=== PATIENT | male | born 1985 | race Hispanic/Latino ===

== ENCOUNTER 2017-04-15 17:48 | Emergency (ER) | payer OTHER ==
[2017-04-15 17:48] VITALS: BMI 19.2
[2017-04-15 17:59] VITALS: BP 130/60; PULSE 90; RESP 16; TEMP 98.5; O2SAT 97
[2017-04-15] MEDS ORDERED: TDAP Vaccine 0.5 mL Syr IM ONE (18:16)
--- NOTE | 2017-04-15 18:37 | ED PDOC ---
Upper Extremity Pain/Injury Time Seen by Provider: 04/15/17 18:10 Chief Complaint (Nursing): Finger,Hand,&Wrist Chief Complaint (Provider): left hand finger pain History Per: Patient History/Exam Limitations: no limitations Current Symptoms Are (Timing): Still Present Additional Complaint(s): Srinivasa Castro is a 31 year old male, with no previous medical history, who presented to the ED with complaints of pain to the middle finger of his left hand secondary to sustaining an injury with a nail gun earlier today. Patient reports the nail ricochet off the wall and grazed the surface of his nail on the middle finger. Patient denies any limited range of motion and is unsure of last tetanus vaccine. Patient states he is right hand dominant. PMD: none provided Past Medical History Reviewed: Historical Data, Nursing Documentation, Vital Signs Vital Signs: Last Vital Signs Temp 98.5 F 04/15/17 17:56 Pulse 90 04/15/17 17:56 Resp 16 04/15/17 17:56 BP 130/60 04/15/17 17:56 Pulse Ox 97 04/15/17 17:56 - Medical History PMH: No Chronic Diseases - Surgical History Surgical History: No Surg Hx - Family History Family History: States: Unknown Family Hx - Home Medications Home Medications: Ambulatory Orders Medication Instructions Recorded Lidocaine 2% Viscous 10 ml MM Q4H PRN #1 bottle 06/06/16 Naproxen [Naprosyn] 500 mg PO BID PRN #20 tablet 06/06/16 Cephalexin [Keflex] 1 tab PO QID #20 capsule 04/15/17 Ibuprofen [Motrin] 600 mg PO Q8 PRN #21 tab 04/15/17 - Allergies Allergies/Adverse Reactions: Allergies Allergy/AdvReac Type Severity Reaction Status Date / Time FISH Allergy ANAPHYLAXIS Verified 04/15/17 17:56 morphine Allergy RASH Verified 04/15/17 17:56 shellfish derived Allergy ANAPHYLAXIS Verified 04/15/17 17:56 strawberry Allergy RASH Verified 04/15/17 17:56 Review of Systems ROS Statement: Except As Marked, All Systems Reviewed And Found Negative Musculoskeletal: Positive for: Hand Pain (left hand 3rd digit ) Physical Exam - Reviewed Nursing Documentation Reviewed: Yes Vital Signs Reviewed: Yes - Physical Exam Appears: Positive for: Well, Non-toxic, No Acute Distress Extremity: Positive for: Normal ROM (able to flex and extend at the MCP, DIP and PIP of 3rd digit left hand ), Capillary Refill (< 2 seconds ), Other (8 mm linear horizontal abrasion to the mid nail not involving nail bed. ). Negative for: Deformity, Swelling Neurologic/Psych: Positive for: Alert, Oriented - ECG O2 Sat by Pulse Oximetry: 97 (RA) Pulse Ox Interpretation: Normal - Progress ED Course And Treament: XRY OF HAND: NO FX NOTED. PLACED IN FINGER SPLINT D/W PATIENT HAND F/U Medical Decision Making Medical Decision Making: Initial Impression: 3rd left digit pain Initial Plan: * boostrix vaccine * x-ray left hand * reevaluation Scribe Attestation: Documented by Bette Aparicio, acting as a scribe for Aislinn Conley PA-C. Provider Scribe Attestation: All medical record entries made by the Scribe were at my direction and personally dictated by me. I have reviewed the chart and agree that the record accurately reflects my personal performance of the history, physical exam, medical decision making, and the department course for this patient. I have also personally directed, reviewed, and agree with the discharge instructions and disposition. Disposition - Clinical Impression Clinical Impression: Finger injury - Patient ED Disposition Is Patient to be Admitted: No - Disposition Referrals: Charanjit Sanders MD [Staff Provider] - Disposition: Routine/Home Disposition Time: 18:53 Condition: FAIR Prescriptions: Cephalexin [Keflex] 1 tab PO QID #20 capsule Ibuprofen [Motrin] 600 mg PO Q8 PRN #21 tab PRN Reason: Pain, Moderate (4-7) Instructions: Finger Sprain (ED), Abrasion (ED) Forms: [facility] ED School/Work Excuse
--- NOTE | 2017-04-15 18:55 | RAD ---
PROCEDURE: Left middle finger radiographs. HISTORY: FINGER INJURY COMPARISON: None available. TECHNIQUE: AP radiograph of the left hand, as well as spot oblique and lateral images of left middle finger were obtained. FINDINGS: LEFT MIDDLE FINGER: Left 3rd digit appears unremarkable without acute displaced fracture. Remainder of the left hand (as seen on the AP view) is grossly unremarkable. JOINTS: No dislocation. SOFT TISSUES: Mild soft tissue swelling. No evidence of radiopaque foreign body. OTHER FINDINGS: None. IMPRESSION: Mild soft tissue swelling. No acute displaced fracture identified. No evidence of radiopaque foreign body.
== END 2017-04-15 19:42 | disposition home or self-care (01) ==
LOC: H.ER 17:48
DX: S63.613A Unspecified sprain of left middle finger, initial encounter (principal); W22.8XXA Striking against or struck by other objects, initial encounter; Y92.89 Other specified places as the place of occurrence of the external cause

== ENCOUNTER 2017-09-18 06:39 | Emergency (ER) | payer OTHER ==
[2017-09-18 06:39] VITALS: BMI 19.2
[2017-09-18 06:53] VITALS: BP 135/90; PULSE 62; RESP 18; TEMP 97.6; O2SAT 98
--- NOTE | 2017-09-18 07:22 | ED PDOC ---
HPI: CCC, URI, Sore Throat Time Seen by Provider: 09/18/17 07:04 Chief Complaint (Nursing): ENT Problem History Per: Patient History/Exam Limitations: no limitations Onset/Duration Of Symptoms: Days (4), Gradual Current Symptoms Are (Timing): Still Present Location Of Pain: Ear(s) Sick Contacts (Context): None Associated Symptoms: Sore Throat, Cough. denies: Fever, Chills, Sputum, Neck Pain, Myalgias, Nasal Congestion, Nausea, Vomiting, Diarrhea Ear Symptoms: Bilateral: None Severity: Mild Additional History Per: Patient Additional Complaint(s): c/o throat pain, nasal congestion and cold sweats x 5 days. No travel or sick contacts Past Medical History Reviewed: Historical Data, Nursing Documentation, Vital Signs Vital Signs: Last Vital Signs Temp 97.6 F 09/18/17 07:15 Pulse 62 09/18/17 07:15 Resp 18 09/18/17 07:15 BP 135/90 09/18/17 07:15 Pulse Ox 98 09/18/17 07:15 - Medical History PMH: No Chronic Diseases - Family History Family History: States: Unknown Family Hx - Living Arrangements Living Arrangements: With Family - Social History Current smoker - smoking cessation education provided: No - Home Medications Home Medications: Ambulatory Orders Medication Instructions Recorded Lidocaine 2% Viscous 10 ml MM Q4H PRN #1 bottle 06/06/16 Naproxen [Naprosyn] 500 mg PO BID PRN #20 tablet 06/06/16 Cephalexin [Keflex] 1 tab PO QID #20 capsule 04/15/17 Ibuprofen [Motrin] 600 mg PO Q8 PRN #21 tab 04/15/17 Azithromycin [Zithromax] 250 mg PO DAILY #5 tab 09/18/17 - Allergies Allergies/Adverse Reactions: Allergies Allergy/AdvReac Type Severity Reaction Status Date / Time FISH Allergy ANAPHYLAXIS Verified 04/15/17 17:56 morphine Allergy RASH Verified 04/15/17 17:56 shellfish derived Allergy ANAPHYLAXIS Verified 04/15/17 17:56 strawberry Allergy RASH Verified 04/15/17 17:56 Review of Systems ROS Statement: Except As Marked, All Systems Reviewed And Found Negative Constitutional: Negative for: Fever, Chills ENT: Positive for: Throat Pain Cardiovascular: Negative for: Chest Pain, Palpitations Respiratory: Positive for: Cough, Sputum (yellow). Negative for: Shortness of Breath Gastrointestinal: Negative for: Nausea, Vomiting, Abdominal Pain Physical Exam - Reviewed Nursing Documentation Reviewed: Yes Vital Signs Reviewed: Yes - Physical Exam Appears: Positive for: Well, No Acute Distress Head Exam: Positive for: ATRAUMATIC, NORMAL INSPECTION, NORMOCEPHALIC Eye Exam: Positive for: Normal appearance, EOMI, PERRL ENT: Positive for: Pharynx Is (clear,mmm), Nasal Congestion. Negative for: Pharyngeal Erythema, Tonsillar Exudate, Tonsillar Swelling Neck: Positive for: Normal, Painless ROM, Supple. Negative for: Decreased ROM, Limited ROM Cardiovascular/Chest: Positive for: Regular Rate, Rhythm, Chest Non Tender. Negative for: Edema, Gallop, Murmur, Bradycardia, Tachycardia Respiratory: Positive for: Normal Breath Sounds. Negative for: Decreased Breath Sounds, Accessory Muscle Use, Crackles, Rales, Rhonchi, Stridor, Wheezing Gastrointestinal/Abdominal: Positive for: Normal Exam, Bowel Sounds, Soft. Negative for: Tenderness Back: Positive for: Normal Inspection. Negative for: L CVA Tenderness, R CVA Tenderness Extremity: Positive for: Normal ROM. 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 Negative for: Motor/Sensory Deficits - ECG O2 Sat by Pulse Oximetry: 98 Pulse Ox Interpretation: Normal Disposition - Clinical Impression Clinical Impression: Bronchitis - Patient ED Disposition Is Patient to be Admitted: No Counseled Patient/Family Regarding: Studies Performed, Diagnosis, Need For Followup, Rx Given - Disposition Referrals: [facility] [Outside] (2 to 3 days) Disposition: Routine/Home Disposition Time: 07:24 Condition: GOOD Prescriptions: Azithromycin [Zithromax] 250 mg PO DAILY #5 tab Instructions: Acute Bronchitis (ED)
== END 2017-09-18 07:47 | disposition home or self-care (01) ==
LOC: H.ER 06:39
DX: J40 Bronchitis, not specified as acute or chronic (principal)

== ENCOUNTER 2017-10-31 02:25 | Emergency (ER) | payer OTHER ==
[2017-10-31 02:26] VITALS: BMI 19.2
[2017-10-31 03:02] VITALS: BP 141/80; PULSE 56; RESP 18; TEMP 98; O2SAT 98
[2017-10-31] MEDS ORDERED: Oxycodone/Acetaminophen 5/325 mg Tab PO STA (03:38)
[2017-10-31] MEDS ORDERED: Oxycodone/Acetaminophen 5/325 mg Tab ONE (03:53)
--- NOTE | 2017-10-31 04:29 | ED PDOC ---
HPI: Dental Pain/Injury Time Seen by Provider: 10/31/17 02:52 Chief Complaint (Nursing): Dental Pain Chief Complaint (Provider): Dental pain, swelling History Per: Patient History/Exam Limitations: no limitations Onset/Duration Of Symptoms: Days Current Symptoms Are (Timing): Still Present Severity: Severe Pain Scale Rating Of: 10 Additional Complaint(s): Pt states he had dental implants 3 days ago and was given amoxicillin and tylenol #3. Pt reports worsening pain. Pt states he called dentist and they are fitting him in at 3:45 today. No fever chills Past Medical History Reviewed: Historical Data, Nursing Documentation, Vital Signs Vital Signs: Last Vital Signs Temp 98 F 10/31/17 02:55 Pulse 56 L 10/31/17 02:55 Resp 18 10/31/17 02:55 BP 141/80 10/31/17 02:55 Pulse Ox 98 10/31/17 02:55 - Medical History PMH: No Chronic Diseases - Surgical History Surgical History: No Surg Hx - Family History Family History: States: Unknown Family Hx - Living Arrangements Living Arrangements: With Family - Social History Current smoker - smoking cessation education provided: No - Home Medications Home Medications: Ambulatory Orders Medication Instructions Recorded Lidocaine 2% Viscous 10 ml MM Q4H PRN #1 bottle 06/06/16 Naproxen [Naprosyn] 500 mg PO BID PRN #20 tablet 06/06/16 Cephalexin [Keflex] 1 tab PO QID #20 capsule 04/15/17 Ibuprofen [Motrin] 600 mg PO Q8 PRN #21 tab 04/15/17 Azithromycin [Zithromax] 250 mg PO DAILY #5 tab 09/18/17 oxyCODONE/Acetaminophen [Percocet 1 ea PO Q6H PRN #5 tab 10/31/17 5/325 mg Tab] - Allergies Allergies/Adverse Reactions: Allergies Allergy/AdvReac Type Severity Reaction Status Date / Time FISH Allergy ANAPHYLAXIS Verified 04/15/17 17:56 morphine Allergy RASH Verified 04/15/17 17:56 shellfish derived Allergy ANAPHYLAXIS Verified 04/15/17 17:56 strawberry Allergy RASH Verified 04/15/17 17:56 Review of Systems ROS Statement: Except As Marked, All Systems Reviewed And Found Negative Constitutional: Negative for: Fever, Chills ENT: Positive for: Other Physical Exam - Reviewed Nursing Documentation Reviewed: Yes Vital Signs Reviewed: Yes - Physical Exam Appears: Positive for: Well, Non-toxic, No Acute Distress Head Exam: Positive for: ATRAUMATIC, NORMAL INSPECTION, NORMOCEPHALIC Skin: Positive for: Normal Color, Warm, DRY Eye Exam: Positive for: Normal appearance ENT: Negative for: Normal ENT Inspection (upper lip edema, edema of the gingiva - No abscess formation) Neck: Positive for: Normal, Painless ROM Cardiovascular/Chest: Positive for: Regular Rate, Rhythm Respiratory: Positive for: Normal Breath Sounds. Negative for: Accessory Muscle Use, Respiratory Distress Back: Positive for: Normal Inspection Extremity: Positive for: Normal ROM Neurologic/Psych: Positive for: Alert, Oriented - ECG O2 Sat by Pulse Oximetry: 98 Medical Decision Making Medical Decision Making: Pt reports feeling better after percocet and motrin. No itchiness, no SOB, etc. Disposition - Clinical Impression Clinical Impression: Pain, dental - Patient ED Disposition Is Patient to be Admitted: No - Disposition Referrals: Jairo Xie MD [Primary Care Provider] - Disposition: Routine/Home Disposition Time: 04:28 Condition: GOOD Additional Instructions: Follow-up with dental surgeon. Prescriptions: oxyCODONE/Acetaminophen [Percocet 5/325 mg Tab] 1 ea PO Q6H PRN #5 tab PRN Reason: Pain, Severe (8-10) Instructions: Toothache (ED)
== END 2017-10-31 04:55 | disposition home or self-care (01) ==
LOC: H.ER 02:25
DX: K08.89 Other specified disorders of teeth and supporting structures (principal)

== ENCOUNTER 2017-12-26 06:55 | Emergency (ER) | payer OTHER ==
[2017-12-26 06:56] VITALS: BMI 19.2
[2017-12-26 07:27] VITALS: BP 142/74; PULSE 60; RESP 18; TEMP 98.2; O2SAT 100
--- NOTE | 2017-12-26 07:44 | ED PDOC ---
HPI: CCC, URI, Sore Throat Time Seen by Provider: 12/26/17 07:34 Chief Complaint (Nursing): ENT Problem History Per: Patient Onset/Duration Of Symptoms: Days (2) Location Of Pain: Ear(s), Throat Associated Symptoms: Sore Throat. denies: Cough Ear Symptoms: Right: Ear Pain Severity: Moderate Pain Scale Rating Of: 4 Additional Complaint(s): Right sided sore throat assoc with right ear pain x 2 days. Denies cough or fever. No SOB. Pain on swallowing Past Medical History Vital Signs: Last Vital Signs Temp 98.2 F 12/26/17 07:24 Pulse 60 12/26/17 07:24 Resp 18 12/26/17 07:24 BP 142/74 12/26/17 07:24 Pulse Ox 100 12/26/17 07:24 - Medical History PMH: No Chronic Diseases - Family History Family History: States: Unknown Family Hx - Home Medications Home Medications: Ambulatory Orders Medication Instructions Recorded Lidocaine 2% Viscous 10 ml MM Q4H PRN #1 bottle 06/06/16 Naproxen [Naprosyn] 500 mg PO BID PRN #20 tablet 06/06/16 Cephalexin [Keflex] 1 tab PO QID #20 capsule 04/15/17 Ibuprofen [Motrin] 600 mg PO Q8 PRN #21 tab 04/15/17 Azithromycin [Zithromax] 250 mg PO DAILY #5 tab 09/18/17 oxyCODONE/Acetaminophen [Percocet 1 ea PO Q6H PRN #5 tab 10/31/17 5/325 mg Tab] Azithromycin [Zithromax] 250 mg PO DAILY #6 tab 12/26/17 Naproxen [Naprosyn] 500 mg PO Q12H #20 tab 12/26/17 - Allergies Allergies/Adverse Reactions: Allergies Allergy/AdvReac Type Severity Reaction Status Date / Time FISH Allergy ANAPHYLAXIS Verified 04/15/17 17:56 morphine Allergy RASH Verified 04/15/17 17:56 shellfish derived Allergy ANAPHYLAXIS Verified 04/15/17 17:56 strawberry Allergy RASH Verified 04/15/17 17:56 Review of Systems Constitutional: Negative for: Fever ENT: Positive for: Ear Pain, Throat Pain Respiratory: Negative for: Cough, Shortness of Breath Gastrointestinal: Negative for: Nausea, Vomiting, Diarrhea Physical Exam - Physical Exam Appears: Positive for: Non-toxic, No Acute Distress Skin: Positive for: Normal Color, Warm, DRY ENT: Positive for: TM Is/Are (Nl), Pharyngeal Erythema, Tonsillar Swelling. Negative for: Tonsillar Exudate Neck: Positive for: Supple. Negative for: Normal (Right cervical adenopathy) Cardiovascular/Chest: Positive for: Regular Rate, Rhythm Respiratory: Positive for: Normal Breath Sounds Neurologic/Psych: Positive for: Alert, Oriented. Negative for: Motor/Sensory Deficits - ECG O2 Sat by Pulse Oximetry: 100 Disposition - Clinical Impression Clinical Impression: Tonsillitis - Patient ED Disposition Is Patient to be Admitted: No Counseled Patient/Family Regarding: Studies Performed, Diagnosis, Need For Followup, Rx Given - Disposition Referrals: Jairo Xie MD [Primary Care Provider] - Disposition: Routine/Home Disposition Time: 07:45 Condition: FAIR Prescriptions: Azithromycin [Zithromax] 250 mg PO DAILY #6 tab Naproxen [Naprosyn] 500 mg PO Q12H #20 tab Instructions: Tonsillitis (ED)
== END 2017-12-26 08:38 | disposition home or self-care (01) ==
LOC: H.ER 06:55
DX: J03.90 Acute tonsillitis, unspecified (principal)

== ENCOUNTER 2018-11-05 08:06 | Emergency (ER) | payer OTHER ==
[2018-11-05 08:06] VITALS: BMI 19.2
[2018-11-05 08:15] VITALS: BP 153/95; PULSE 66; RESP 18; TEMP 97.7; O2SAT 97
--- NOTE | 2018-11-05 09:05 | ED PDOC ---
HPI: Influenza Time Seen by Provider: 11/05/18 08:12 Chief Complaint: Flu-like Symptoms Chief Complaint (Provider): Flu-like Symptoms History Per: Patient Exam Limitations: no limitations Onset/Duration Of Symptoms: Days (x2) Additional complaint(s):: 33 year old male presenting for evaluation of body ahes, cough, congestion, and runny nose since yesterday. Patient reports a cough productive of green phlegm and reports some pain when coughing, but otherwise denies any peristent chest pain. Patient states he took Motrin with no relief of symptoms. Patient denies any associated fever, but reports cold sweats. Patient further denies any nausea, vomiting, diarrhea, abdominal pain, shortness of breath, or urinary symptoms. Past Medical History Reviewed: Historical Data, Nursing Documentation, Vital Signs Vital Signs: Last Vital Signs Temp 97.7 F 11/05/18 08:14 Pulse 66 11/05/18 08:14 Resp 18 11/05/18 08:14 BP 153/95 H 11/05/18 08:14 Pulse Ox 97 11/05/18 08:14 - Medical History PMH: No Chronic Diseases - Surgical History Surgical History: No Surg Hx - Family History Family History: States: Unknown Family Hx - Home Medications Home Medications: Ambulatory Orders Medication Instructions Recorded Lidocaine 2% Viscous 10 ml MM Q4H PRN #1 bottle 06/06/16 Naproxen [Naprosyn] 500 mg PO BID PRN #20 tablet 06/06/16 Cephalexin [Keflex] 1 tab PO QID #20 capsule 04/15/17 Ibuprofen [Motrin] 600 mg PO Q8 PRN #21 tab 04/15/17 Azithromycin [Zithromax] 250 mg PO DAILY #5 tab 09/18/17 oxyCODONE/Acetaminophen [Percocet 1 ea PO Q6H PRN #5 tab 10/31/17 5/325 mg Tab] Azithromycin [Zithromax] 250 mg PO DAILY #6 tab 12/26/17 Naproxen [Naprosyn] 500 mg PO Q12H #20 tab 12/26/17 Benzonatate [Tessalon Perles] 100 mg PO BID PRN 5 Days sgl 11/05/18 Ibuprofen [Motrin] 600 mg PO TID 7 Days tab 11/05/18 - Allergies Allergies/Adverse Reactions: Allergies Allergy/AdvReac Type Severity Reaction Status Date / Time FISH Allergy ANAPHYLAXIS Verified 11/05/18 08:26 morphine Allergy RASH Verified 11/05/18 08:26 shellfish derived Allergy ANAPHYLAXIS Verified 11/05/18 08:26 strawberry Allergy RASH Verified 11/05/18 08:26 Review of Systems ROS Statement: Except As Marked, All Systems Reviewed And Found Negative Constitutional: Positive for: Sweats. Negative for: Fever ENT: Positive for: Nose Discharge, Nose Congestion Cardiovascular: Negative for: Chest Pain Respiratory: Positive for: Cough, Sputum. Negative for: Shortness of Breath Gastrointestinal: Negative for: Nausea, Vomiting, Abdominal Pain, Diarrhea Genitourinary Male: Negative for: Dysuria, Frequency, Incontinence Musculoskeletal: Positive for: Other (body aches) Physical Exam - Reviewed Nursing Documentation Reviewed: Yes Vital Signs Reviewed: Yes - Physical Exam Appears: Positive for: Non-toxic, No Acute Distress Head Exam: Positive for: ATRAUMATIC, NORMAL INSPECTION, NORMOCEPHALIC Skin: Positive for: Normal Color, Warm, Dry. Negative for: Rash Eye Exam: Positive for: EOMI, Normal appearance, PERRL ENT: Positive for: Normal ENT Inspection, Nasal Congestion. Negative for: Pharyngeal Erythema, Tonsillar Exudate, Tonsillar Swelling Neck: Positive for: Normal, Painless ROM, Supple Cardiovascular/Chest: Positive for: Regular Rate, Rhythm. Negative for: Murmur Respiratory: Positive for: Normal Breath Sounds. Negative for: Respiratory Distress Gastrointestinal/Abdominal: Positive for: Normal Exam, Soft. Negative for: Tenderness Back: Positive for: Normal Inspection. Negative for: L CVA Tenderness, R CVA Tenderness, Vertebral Tenderness Extremity: Positive for: Normal ROM. Negative for: Pedal Edema, Deformity Neurologic/Psych: Positive for: Alert, Oriented (x3). Negative for: Motor/Sensory Deficits Medical Decision Making Medical Decision Makin Plan: -Tessalon Perles 100mg PO -Motrin 600mg PO -Flu swab -Reevaluation ----- Scribe Attestation: Documented by Arian Pinto, acting as a scribe for Donta Pickard MD. Provider Scribe Attestation: All medical record entries made by the Scribe were at my direction and personally dictated by me. I have reviewed the chart and agree that the record accurately reflects my personal performance of the history, physical exam, medical decision making, and the department course for this patient. I have also personally directed, reviewed, and agree with the discharge instructions and disposition. - ECG O2 Sat by Pulse Oximetry: 97 Pulse Ox Interpretation: Normal - Progress ED Course And Treament: 1044: Stable. AAOx3. Pain free. Tolerated PO. Fu with pcp. Disposition - Clinical Impression Clinical Impression: URI (upper respiratory infection) - Patient ED Disposition Is Patient to be Admitted: No Counseled Patient/Family Regarding: Studies Performed, Diagnosis, Need For Followup, Rx Given - Disposition [facility]errals: [facility] - 11/06/18 Disposition: Routine/Home Disposition Time: 10:00 Condition: STABLE Additional Instructions: Return if not better in 3 days. Prescriptions: Benzonatate [Tessalon Perles] 100 mg PO BID PRN 5 Days sgl PRN Reason: Cough Ibuprofen [Motrin] 600 mg PO TID 7 Days tab Instructions: Viral Upper Respiratory Infection, Adult (DC) Forms: [facility] ED School/Work Excuse
== END 2018-11-05 11:05 | disposition home or self-care (01) ==
LOC: H.ER 08:06
DX: J06.9 Acute upper respiratory infection, unspecified (principal)

== ENCOUNTER 2019-01-01 08:10 | Emergency (ER) | payer OTHER ==
[2019-01-01 08:15] VITALS: BMI 22.8
[2019-01-01 08:19] VITALS: BP 119/72; PULSE 61; RESP 20; TEMP 97.7
[2019-01-01] MEDS ORDERED: Tdap Vaccine 0.5 ml Vial (10-64 yrs) IM ONE ×2 (08:37→08:43)
--- NOTE | 2019-01-01 08:40 | ED PDOC ---
HPI: Skin/Bite Injury Time Seen by Provider: 01/01/19 08:20 Chief Complaint (Nursing): Bite Chief Complaint (Provider): Dog bite History Per: Patient History/Exam Limitations: no limitations Onset/Duration Of Symptoms: Hrs Current Symptoms Are (Timing): Still Present Location Of Injury: Left: Hand Additional Complaint(s): 33yo male, otherwise well, comes to ER for evaluation of a dog bite to his left hand. Patient states the dog was on a leash by his bottom cager, and bit him unprovoked; also reports the dog is observable and appears well. No additional complaints. Tetanus not up to date. - Animal Bite Description Of The Attack: Unprovoked Attack Description Of The Animal: Neighbor's Pet Animal Appears: Well Past Medical History Reviewed: Historical Data, Nursing Documentation, Vital Signs Vital Signs: Last Vital Signs Temp 97.7 F 01/01/19 08:17 Pulse 61 01/01/19 08:17 Resp 20 01/01/19 08:17 BP 119/72 01/01/19 08:17 Pulse Ox 98 01/01/19 08:17 - Medical History PMH: No Chronic Diseases - Surgical History Surgical History: No Surg Hx - Family History Family History: States: No Known Family Hx - Home Medications Home Medications: Ambulatory Orders Medication Instructions Recorded Lidocaine 2% Viscous 10 ml MM Q4H PRN #1 bottle 06/06/16 Naproxen [Naprosyn] 500 mg PO BID PRN #20 tablet 06/06/16 Cephalexin [Keflex] 1 tab PO QID #20 capsule 04/15/17 Ibuprofen [Motrin] 600 mg PO Q8 PRN #21 tab 04/15/17 Azithromycin [Zithromax] 250 mg PO DAILY #5 tab 09/18/17 oxyCODONE/Acetaminophen [Percocet 1 ea PO Q6H PRN #5 tab 10/31/17 5/325 mg Tab] Azithromycin [Zithromax] 250 mg PO DAILY #6 tab 12/26/17 Naproxen [Naprosyn] 500 mg PO Q12H #20 tab 12/26/17 Benzonatate [Tessalon Perles] 100 mg PO BID PRN 5 Days sgl 11/05/18 Ibuprofen [Motrin] 600 mg PO TID 7 Days tab 11/05/18 Amoxicillin/Clavulanate [Augmentin 1 tab PO BID #20 tab 01/01/19 875 MG-125 MG] Naproxen [Naprosyn] 500 mg PO Q12H #20 tab 01/01/19 - Allergies Allergies/Adverse Reactions: Allergies Allergy/AdvReac Type Severity Reaction Status Date / Time FISH Allergy ANAPHYLAXIS Verified 11/05/18 08:26 morphine Allergy RASH Verified 11/05/18 08:26 shellfish derived Allergy ANAPHYLAXIS Verified 11/05/18 08:26 strawberry Allergy RASH Verified 11/05/18 08:26 Review of Systems Skin: Positive for: Other (dog bite to left hand) Physical Exam - Reviewed Nursing Documentation Reviewed: Yes Vital Signs Reviewed: Yes - Physical Exam Appears: Positive for: No Acute Distress Pulses-Radial (L): 2+ Extremity: Positive for: Normal ROM (FROM of all digits on left hand), Other (puncture wounds noted to thenar eminence of left hand; scratches noted to dorsal aspect of left thumb. no active bleeding. no erythema, edema or streaking.) Neurologic/Psych: Positive for: Alert, Oriented. Negative for: Motor/Sensory Deficits - ECG O2 Sat by Pulse Oximetry: 98 (RA) Pulse Ox Interpretation: Normal Medical Decision Making Medical Decision Makinyo male w/ dog bite Plan: -- Tetanus booster No indications for prophylactic rabies vaccine at this time. patient informed to take medications as prescribed and to follow up with PMD in 2-3 days. Scribe Attestation: Documented by Ladonna Maxwell acting as a scribe for Rodrigo Washington MD. Provider Attestation: All medical record entries made by the Scribe were at my direction and personally dictated by me. I have reviewed the chart and agree that the record accurately reflects my personal performance of the history, physical exam, medical decision making, and the department course for this patient. I have also personally directed, reviewed, and agree with the discharge instructions and disposition. Disposition - Clinical Impression Clinical Impression: Animal bite wound - Patient ED Disposition Is Patient to be Admitted: No Counseled Patient/Family Regarding: Diagnosis, Need For Followup, Rx Given - Disposition Referrals: [facility] [Outside] Disposition: Routine/Home Disposition Time: 08:43 Condition: FAIR Prescriptions: Amoxicillin/Clavulanate [Augmentin 875 MG-125 MG] 1 tab PO BID #20 tab Naproxen [Naprosyn] 500 mg PO Q12H #20 tab Instructions: Animal Bites (DC) Forms: [employer] (Frisian), [facility] ED School/Work Excuse
[2019-01-01 09:15] VITALS: O2SAT 99
== END 2019-01-01 09:14 | disposition home or self-care (01) ==
LOC: H.ER 08:10
DX: S61.452A Open bite of left hand, initial encounter (principal); W54.0XXA Bitten by dog, initial encounter; Z23 Encounter for immunization

== ENCOUNTER 2019-01-15 15:10 | Emergency (ER) | payer OTHER ==
[2019-01-15 15:19] VITALS: BMI 20.8
--- NOTE | 2019-01-15 15:55 | ED PDOC ---
HPI: Abdomen Time Seen by Provider: 01/15/19 15:33 Chief Complaint (Nursing): Abdominal Pain Chief Complaint (Provider): abdominal pain History Per: Patient Onset/Duration Of Symptoms: Days (5) Outside of [place] travel?: No Current Symptoms Are (Timing): Still Present Location Of Pain/Discomfort: Epigastric, LLQ Quality Of Discomfort: Sharp, "Pain" Associated Symptoms: Chills, Nausea, Vomiting, Diarrhea, Loss Of Appetite. denies: Back Pain, Urinary Symptoms Exacerbating Factors: None Alleviating Factors: None Last Bowel Movement: Today Additional Complaint(s): 33 yo M with no chronic medical history presenting to ED today, 01/15/19 for evaluation of abdominal pain x 5 days. Reports that he awoke early Saturday morning with sweats, chills, nausea, abdominal pain and vomiting with diarrhea. Reports that he had multiple episodes of NBNB vomiting and nonbloody, without mucus diarrhea on Saturday and Saturday; went to his PMD's office on and was seen by a covering physician who prescribed zofran, immodium, and ciprofloxacin. He states that since he started taking the medication he has not been vomiting any longer and can keep down water and soup, but continues to have abdominal pain and watery diarrhea, had 2 episodes today prior to arrival. Describes abdominal pain as sharp, 5/10, in LLQ and epigastric without radiation to the back or elsewhere. Not alleviated or aggravated by anything. Continues to have waxing and waning chills. No recent travel in past 6 mo outside of [place]. PMD: Jairo Mcfadden; recently seen by Antonia Contreras covering for Dr. Xie Med hx: no chronic med problems No chronic medications Past Surg: dental Fam hx: noncontributory Soc: 1-2 cig/day, occ EtOH less than 1x a week, denies drug Allergies: strawberries, shellfish Past Medical History Reviewed: Nursing Documentation, Vital Signs Vital Signs: Last Vital Signs Temp 98.0 F 01/15/19 15:19 Pulse 68 01/15/19 15:19 Resp BP 142/83 01/15/19 15:19 Pulse Ox 98 01/15/19 15:19 - Medical History PMH: No Chronic Diseases - Family History Family History: States: Unknown Family Hx - Living Arrangements Living Arrangements: With Family - Social History Current smoker - smoking cessation education provided: No Alcohol: Occasional Drugs: Denies - Home Medications Home Medications: Ambulatory Orders Medication Instructions Recorded Lidocaine 2% Viscous 10 ml MM Q4H PRN #1 bottle 06/06/16 Naproxen [Naprosyn] 500 mg PO BID PRN #20 tablet 06/06/16 Cephalexin [Keflex] 1 tab PO QID #20 capsule 04/15/17 Ibuprofen [Motrin] 600 mg PO Q8 PRN #21 tab 04/15/17 Azithromycin [Zithromax] 250 mg PO DAILY #5 tab 09/18/17 oxyCODONE/Acetaminophen [Percocet 1 ea PO Q6H PRN #5 tab 10/31/17 5/325 mg Tab] Azithromycin [Zithromax] 250 mg PO DAILY #6 tab 12/26/17 Naproxen [Naprosyn] 500 mg PO Q12H #20 tab 12/26/17 Benzonatate [Tessalon Perles] 100 mg PO BID PRN 5 Days sgl 11/05/18 Ibuprofen [Motrin] 600 mg PO TID 7 Days tab 11/05/18 Amoxicillin/Clavulanate [Augmentin 1 tab PO BID #20 tab 01/01/19 875 MG-125 MG] Naproxen [Naprosyn] 500 mg PO Q12H #20 tab 01/01/19 - Allergies Allergies/Adverse Reactions: Allergies Allergy/AdvReac Type Severity Reaction Status Date / Time FISH Allergy ANAPHYLAXIS Verified 11/05/18 08:26 morphine Allergy RASH Verified 11/05/18 08:26 shellfish derived Allergy ANAPHYLAXIS Verified 11/05/18 08:26 strawberry Allergy RASH Verified 11/05/18 08:26 Review of Systems Constitutional: Positive for: Chills, Sweats. Negative for: Fever Cardiovascular: Negative for: Palpitations Respiratory: Negative for: Cough, Shortness of Breath Gastrointestinal: Positive for: Nausea, Vomiting, Abdominal Pain, Diarrhea. Negative for: Melena, Hematochezia, Hematemesis Genitourinary Male: Negative for: Dysuria Physical Exam - Physical Exam Appears: Positive for: No Acute Distress Head Exam: Positive for: ATRAUMATIC, NORMAL INSPECTION Skin: Positive for: Normal Color, Warm, Dry Eye Exam: Positive for: Normal appearance Neck: Positive for: Normal Cardiovascular/Chest: Positive for: Regular Rate, Rhythm, Chest Non Tender Respiratory: Positive for: Normal Breath Sounds Gastrointestinal/Abdominal: Positive for: Bowel Sounds, Soft, Tenderness (LLQ and epigastric). Negative for: Distended, Guarding, Rebound Back: Negative for: L CVA Tenderness, R CVA Tenderness Extremity: Negative for: Deformity Neurologic/Psych: Positive for: Alert, Oriented Comments: has multiple tattoos - Laboratory Results Result Diagrams: 01/15/19 16:00 01/15/19 16:00 - ECG O2 Sat by Pulse Oximetry: 98 Medical Decision Making Medical Decision Makin yo M with 5 day hx abdominal pain with diarrhea, as well as now resolved vomiting. Initial workup - CBC - CMP - Lipase - UA - Urine C&S - Abd/Pelvis CT w/ PO and IV contrast Above discussed w/ Dr. Rivero. 0 - Pt signed out to Dr. Rivero. Disposition - Clinical Impression Clinical Impression: Abdominal pain - Disposition Disposition Time: 17:02 (Dr. Rivero to take over; has been following case) Condition: STABLE Forms: [employer] (French)
[2019-01-15] MEDS ORDERED: Iohexol 240 (50 ml) PO ONE (15:57)
[2019-01-15] MEDS ORDERED: Iohexol 240 (50 ml) ONE (16:32)
[2019-01-15 16:38] LABS: BASO % 1.1 % (0.0-2.0); EOS # 0.1 K/uL (0.0-0.7); EOS % 1.7 % (0.0-4.0); HEMOGLOBIN 14.8 g/dL (12.0-18.0); LYMPH # 1.6 K/uL (1.0-4.3); LYMPH % 42.4 % (20.0-40.0); MEAN CORPUSCULAR HEMOGLOBIN 32.5 pg (27.0-31.0); MEAN CORPUSCULAR HGB CONC 34.6 g/dL (33.0-37.0); MEAN PLATELET VOLUME 9.2 fl (7.2-11.7); MONO # 0.5 K/uL (0.0-0.8); NEUT # 1.5 K/uL (1.8-7.0); NEUT % 40.8 % (50.0-75.0); NRBC % 0.1 % (0.0-0.0); RBC 4.56 Mil/uL (4.40-5.90); RED CELL DISTRIBUTION WIDTH 11.9 % (11.5-14.5); WHITE BLOOD COUNT 3.8 K/uL (4.8-10.8)
[2019-01-15 16:42] LABS: ALB/GLOB RATIO 1.7 (1.0-2.1); ALT/SGPT 57 U/L (21-72); AST/SGOT 55 U/L (17-59); BLOOD UREA NITROGEN 14 mg/dl (9-20); CALCIUM 9.8 mg/dL (8.4-10.2); GFR NON-AFRICAN AMERICAN > 60; LIPASE 243 U/L (23-300)
[2019-01-15] MEDS ORDERED: Iohexol 300 100 ML IJ ONE (17:40)
[2019-01-15] MEDS ORDERED: Sodium Chloride 0.9% 50 ML IV ONE (17:41)
[2019-01-15 19:54] LABS: URINE BACTERIA RARE (<OCC); URINE BILIRUBIN NEGATIVE (NEGATIVE); URINE BLOOD NEGATIVE (NEGATIVE); URINE CALCIUM OXALATE CRYSTALS FEW /hpf (<OCC); URINE CLARITY CLOUDY (Clear); URINE COLOR AMBER (YELLOW); URINE GLUCOSE (UA) NEG (NEGATIVE); URINE LEUKOCYTE ESTERASE NEG Leu/uL (Negative); URINE PROTEIN 30 mg/dL (NEGATIVE)
[2019-01-15 20:43] VITALS: BP 137/98; PULSE 65; RESP 18; TEMP 98.2; O2SAT 100
--- NOTE | 2019-01-16 11:59 | CT ---
Date of service: 01/15/2019 PROCEDURE: CT Abdomen and Pelvis with contrast HISTORY: Abdominal pain, possible dehydration. COMPARISON: None. TECHNIQUE: Intravenous contrast dose: 95 cc Omnipaque 300 Radiation dose: Total exam DLP = 233.29 mGy-cm. This CT exam was performed using one or more of the following dose reduction techniques: Automated exposure control, adjustment of the mA and/or kV according to patient size, and/or use of iterative reconstruction technique. FINDINGS: LOWER THORAX: Unremarkable. LIVER: Unremarkable. No gross lesion or ductal dilatation. GALLBLADDER AND BILE DUCTS: Unremarkable. PANCREAS: Unremarkable. No gross lesion or ductal dilatation. SPLEEN: Unremarkable. ADRENALS: Unremarkable. No mass. KIDNEYS AND URETERS: Unremarkable. No hydronephrosis. No solid mass. VASCULATURE: Unremarkable. No aortic aneurysm. No atherosclerotic calcification or mural plaque present. BOWEL: Edematous changes, mild in degree, the distribution of which is primarily jejunum and to lesser extent the ileum. No evidence of mechanical bowel obstruction. APPENDIX: Normal appendix. PERITONEUM: Unremarkable. No free fluid. No free air. LYMPH NODES: Unremarkable. No enlarged lymph nodes. BLADDER: Unremarkable. REPRODUCTIVE: Unremarkable. BONES: No acute fracture. OTHER FINDINGS: None. IMPRESSION: Mild enteritis. No evidence of obstructing lesion, intussusception or other pathologic process. Concordant results (preliminary interpretation) provided by [employer]. Procedure Completed: 18:54. Preliminary Report: Dictated and Authenticated: 19:49. Final Interpretation: 11:55. January 16, 2019
== END 2019-01-15 20:43 | disposition home or self-care (01) ==
LOC: H.ER 15:10
DX: R10.32 Left lower quadrant pain (principal); R19.7 Diarrhea, unspecified
CPT/HCPCS: 74177; 80053; 81003; 83690; 85025; 87086; 99283; Q9966; Q9967

== ENCOUNTER 2019-04-23 08:16 | Emergency (ER) | payer OTHER ==
[2019-04-23 08:23] VITALS: BP 129/74; PULSE 65; RESP 18; TEMP 98; O2SAT 97
[2019-04-23 08:24] VITALS: BMI 21.4
[2019-04-23] MEDS ORDERED: Tetracaine 0.5% Ophth 2 ML BOTTLE OD ONE (08:43)
[2019-04-23] MEDS ORDERED: Fluorescein 1 mg Ophthalmic Strip OD ONE (08:44)
[2019-04-23] MEDS ORDERED: Tetracaine 0.5% Ophth 2 ML BOTTLE ONE (08:54)
[2019-04-23] MEDS ORDERED: Fluorescein 1 mg Ophthalmic Strip ONE (08:54)
--- NOTE | 2019-04-23 09:25 | ED PDOC ---
HPI: Eye Injury/Pain Time Seen by Provider: 04/23/19 08:42 Chief Complaint (Nursing): Eye Problem Chief Complaint (Provider): Eye Problem History Per: Patient History/Exam Limitations: no limitations Onset/Duration Of Symptoms: Days ( 5) Current Symptoms Are (Timing): Still Present Injury To Eye?: Yes Quality: "Pain" Wears Contact Lens?: No Associated Symptoms: Pain, Swelling, Discharge From Eye Additional Complaint(s): 33 year old male presents to the ED for evaluation of a right eye pain and redness after an injury that occurred 5 days ago. Patient reports blurry vision, light sensitivity and pain opening the right eye. He sustained the injury after walking into a cabinet door 5 days ago. Patient states that he did not follow up before this because he was unable to miss work. He tried to apply Visine to his eye with no relief. He does not have a regular eye doctor. Denies headache, difficulty moving his eye and other complaints. PMD: none provided Past Medical History Reviewed: Historical Data Vital Signs: Last Vital Signs Temp 98 F 04/23/19 08:23 Pulse 65 04/23/19 08:23 Resp 18 04/23/19 08:23 BP 129/74 04/23/19 08:23 Pulse Ox 97 04/23/19 08:23 - Medical History PMH: No Chronic Diseases - Surgical History Surgical History: No Surg Hx - Family History Family History: States: Unknown Family Hx - Home Medications Home Medications: Ambulatory Orders Medication Instructions Recorded Lidocaine 2% Viscous 10 ml MM Q4H PRN #1 bottle 06/06/16 Naproxen [Naprosyn] 500 mg PO BID PRN #20 tablet 06/06/16 Cephalexin [Keflex] 1 tab PO QID #20 capsule 04/15/17 Ibuprofen [Motrin] 600 mg PO Q8 PRN #21 tab 04/15/17 Azithromycin [Zithromax] 250 mg PO DAILY #5 tab 09/18/17 oxyCODONE/Acetaminophen [Percocet 1 ea PO Q6H PRN #5 tab 10/31/17 5/325 mg Tab] Azithromycin [Zithromax] 250 mg PO DAILY #6 tab 12/26/17 Naproxen [Naprosyn] 500 mg PO Q12H #20 tab 12/26/17 Benzonatate [Tessalon Perles] 100 mg PO BID PRN 5 Days sgl 11/05/18 Ibuprofen [Motrin] 600 mg PO TID 7 Days tab 11/05/18 Amoxicillin/Clavulanate [Augmentin 1 tab PO BID #20 tab 01/01/19 875 MG-125 MG] Naproxen [Naprosyn] 500 mg PO Q12H #20 tab 01/01/19 Ofloxacin Ophth 0.3% [Ocuflox 2 drop OD Q6 #1 bottle 04/23/19 Ophth 0.3%] - Allergies Allergies/Adverse Reactions: Allergies Allergy/AdvReac Type Severity Reaction Status Date / Time FISH Allergy ANAPHYLAXIS Verified 11/05/18 08:26 morphine Allergy RASH Verified 11/05/18 08:26 shellfish derived Allergy ANAPHYLAXIS Verified 11/05/18 08:26 strawberry Allergy RASH Verified 11/05/18 08:26 Review of Systems ROS Statement: Except As Marked, All Systems Reviewed And Found Negative Eyes: Positive for: Pain (right), Vision Change (blurry), Redness (right) Physical Exam - Reviewed Nursing Documentation Reviewed: Yes Vital Signs Reviewed: Yes - Physical Exam Appears: Positive for: No Acute Distress Head Exam: Positive for: ATRAUMATIC, NORMAL INSPECTION, NORMOCEPHALIC Skin: Positive for: Normal Color, Warm, Dry Eye Exam: Positive for: EOMI, PERRL, Other (3 mm linear corneal laceration ove rlying right iris towards sclera; (+) scleral injection, (+) clear discharge). Negative for: Conjunctival injection (foreign body or signs of infection) Cardiovascular/Chest: Positive for: Regular Rate, Rhythm. Negative for: Murmur Respiratory: Positive for: Normal Breath Sounds. Negative for: Respiratory Distress Extremity: Positive for: Normal ROM (x 4). Negative for: Deformity Neurological/Psych: Positive for: Awake, Alert, Normal Tone, Oriented (x 3). Negative for: Motor/Sensory Deficits - ECG O2 Sat by Pulse Oximetry: 97 (RA) Pulse Ox Interpretation: Normal Medical Decision Making Medical Decision Makin:45 MDM: Corneal abrasion; no signs of infection or foreign body Patient will be discharged with antibiotics. Instructed to follow with framing mechanic in 1-2 days Return if symptoms worsen or if discharge, vision changes, or eye swelling occurs. Scribe Attestation: Documented by Gabby Carty, acting as a scribe for Norah Lau MD. Provider Scribe Attestation: All medical record entries made by the Scribe were at my direction and personally dictated by me. I have reviewed the chart and agree that the record accurately reflects my personal performance of the history, physical exam, medical decision making, and the department course for this patient. I have also personally directed, reviewed, and agree with the discharge instructions and disposition. Disposition - Clinical Impression Clinical Impression: Corneal abrasion, right - Patient ED Disposition Is Patient to be Admitted: No - Disposition Referrals: Chaz Parry MD [Staff Provider] - Disposition: Routine/Home Disposition Time: 09:20 Condition: IMPROVED Additional Instructions: Follow up with [facility] Ambassador in 24 to 48 hours. Return to the emergency department if symptoms worsen or if new symptoms develop. Prescriptions: Ofloxacin Ophth 0.3% [Ocuflox Ophth 0.3%] 2 drop OD Q6 #1 bottle Instructions: Corneal Abrasion (DC) Forms: [employer] (Greek), [facility] ED School/Work Excuse
== END 2019-04-23 09:43 | disposition home or self-care (01) ==
LOC: H.ER 08:16
DX: S05.01XA Injury of conjunctiva and corneal abrasion without foreign body, right eye, initial encounter (principal); W22.03XA Walked into furniture, initial encounter